=== PATIENT | female | born 1970 | race Caucasian/White ===

== ENCOUNTER 2017-09-29 22:10 | Emergency (ER) | payer OTHER ==
[~2017-09-29] VITALS: Ht 160 cm; Wt 88.0 kg
[~2017-09-29 22:10] MED LIST: AUGMENTIN 875875 MG PO; FLEXERIL; HYDROCODON-ACE1 EAC4; HYDROCODON-ACE1 EAC8 PO; MEDROL DOSPAK21 TAB PO; NORCO 10-325 T1 EACH PO; PEPCID40 MG PO; PREDNISONE 20 M20 M1 PO; SPIRONOLACTONE25 M1 PO; ZOFRAN4 MG PO; ZYRTEC 10 MG TA10 M1 PO
[2017-09-29 22:25] VITALS: BP 167/83
[2017-09-29] MEDS ORDERED: TRIAMCINOLONE A80 G2 TOP (22:28)
[2017-09-29] MEDS ORDERED: FLONASE 0.05%50 MCG NASAL (22:28)
[2017-09-29] MEDS ORDERED: KEFLEX500 M1 PO (22:28)
== END 2017-09-29 22:36 | disposition home or self-care (01) ==
LOC: M.ERS 22:10
DX: R21 Rash and other nonspecific skin eruption (principal); Z88.6 Allergy status to analgesic agent; Z90.710 Acquired absence of both cervix and uterus; Z90.49 Acquired absence of other specified parts of digestive tract

== ENCOUNTER 2018-11-08 04:35 | Emergency (ER) | payer OTHER ==
[~2018-11-08] VITALS: Ht 160 cm; Wt 82.6 kg
[~2018-11-08 04:35] MED LIST changes: +FLONASE 0.05%50 MCG NASAL; +KEFLEX500 M1 PO; +TRIAMCINOLONE A80 G2 TOP
[2018-11-08 05:14] LABS: ABSOLUTE BASOPHILS 0.1 thou/uL (0.0-0.2); ABSOLUTE EOSINOPHILS 0.4 thou/uL (0.0-0.7); ABSOLUTE MONOCYTES 0.5 thou/uL (0.0-1.2); BASOPHILS 0.9 %; EOSINOPHILS 7.2 %; HEMATOCRIT 41.8 % (37.0-47.0); HEMOGLOBIN 13.5 gm/dL (12.0-15.0); LYMPHOCYTES 33.3 %; MCH 27.5 pg (26.0-34.0); MCHC 32.2 g/dL (28.0-37.0); MCV 85.5 fL (80.0-100.0); MONOCYTES 7.9 %; MPV 8.3 fl. (7.2-11.1); NUCLEATED RBCS 0 /100WBC; PLATELET COUNT* 279 thou/uL (150-400); POLYS 50.7 %; RBC 4.89 mil/uL (4.20-5.00); RDW-CV 13.5 % (10.5-14.5)
[2018-11-08 05:21] LABS: CALCIUM 8.8 mg/dL (8.5-10.1); CREATININE 0.8 mg/dL (0.6-1.3); POTASSIUM 4.3 mmol/L (3.5-5.1)
[2018-11-08 05:26] LABS: ALBUMIN 3.4 g/dL (3.4-5.0); TOTAL BILIRUBIN 0.1 mg/dL (<0.1-1.0); TOTAL PROTEIN 7.4 g/dL (6.4-8.2)
[2018-11-08] MEDS ORDERED: AMOXICILLIN 50500 MG PO (06:14)
[2018-11-08 06:31] VITALS: BP 160/78
== END 2018-11-08 06:32 | disposition home or self-care (01) ==
LOC: M.ERS 04:35
PROVIDERS: Family Medicine
DX: J03.90 Acute tonsillitis, unspecified (principal); Z88.6 Allergy status to analgesic agent; Z98.890 Other specified postprocedural states; Z90.49 Acquired absence of other specified parts of digestive tract; Z90.710 Acquired absence of both cervix and uterus

== ENCOUNTER → 2018-12-06 | Outpatient (CLI) | payer OTHER ==
[~2018-12-06] MED LIST changes: +AMOXICILLIN 50500 MG PO
== END ==
LOC: M.MRI 06:25
DX: M47.26 Other spondylosis with radiculopathy, lumbar region (principal); M50.122 Cervical disc disorder at C5-C6 level with radiculopathy; M51.16 Intervertebral disc disorders with radiculopathy, lumbar region; M51.27 Other intervertebral disc displacement, lumbosacral region; M43.16 Spondylolisthesis, lumbar region; M47.817 Spondylosis without myelopathy or radiculopathy, lumbosacral region; M48.061 Spinal stenosis, lumbar region without neurogenic claudication; M48.07 Spinal stenosis, lumbosacral region; M47.22 Other spondylosis with radiculopathy, cervical region

== ENCOUNTER → 2019-05-23 | Outpatient (CLI) | payer OTHER | LOC: M.CT 08:27 | DX: R10.32 Left lower quadrant pain (principal); Z90.49 Acquired absence of other specified parts of digestive tract ==

== ENCOUNTER → 2019-06-11 | Outpatient (CLI) | payer OTHER ==
[2019-06-11 17:16] LABS: ABSOLUTE BASOPHILS 0.1 thou/uL (0.0-0.2); ABSOLUTE EOSINOPHILS 0.4 thou/uL (0.0-0.7); ABSOLUTE LYMPHOCYTES 1.8 thou/uL (0.8-5.3); ABSOLUTE MONOCYTES 0.6 thou/uL (0.0-1.2); ABSOLUTE NEUTROPHILS 5.4 thou/uL (1.6-8.1); BASOPHILS 0.9 %; EOSINOPHILS 4.5 %; HEMATOCRIT 40.9 % (37.0-47.0); HEMOGLOBIN 13.8 gm/dL (12.0-15.0); LYMPHOCYTES 22.1 %; MCH 28.3 pg (26.0-34.0); MCHC 33.7 g/dL (28.0-37.0); MCV 83.8 fL (80.0-100.0); MONOCYTES 7.1 %; MPV 8.1 fl. (7.2-11.1); NUCLEATED RBCS 0 /100WBC; PLATELET COUNT* 275 thou/uL (150-400); POLYS 65.4 %; RBC 4.88 mil/uL (4.20-5.00); RDW-CV 13.8 % (10.5-14.5); WBC 8.3 thou/uL (4.0-11.0)
[2019-06-11 17:32] LABS: ALBUMIN 3.9 g/dL (3.4-5.0); CALCIUM 8.8 mg/dL (8.5-10.1); CREATININE 0.8 mg/dL (0.6-1.3); POTASSIUM 4.2 mmol/L (3.5-5.1); TOTAL BILIRUBIN 0.3 mg/dL (<0.1-1.0); TOTAL PROTEIN 7.9 g/dL (6.4-8.2)
== END ==
LOC: M.LAB 17:04
PROVIDERS: Internal Medicine Gastroenterology
DX: R19.4 Change in bowel habit (principal)

== ENCOUNTER → 2019-06-17 | Day surgery (SDC) | payer OTHER ==
--- NOTE | ~2019-06-17 | PROC ---
[address] [place] [address] [facility]#: [id number] Admission: 06/17/19 Attend Phys: Chapo Hernandez DO Discharge: Date of : 68 Report #: [id number] THIS REPORT FOR: //name// For GI report, please see the Provation report in [employer] content. By: [id number] Records Staff TERRY /CHIN
== END | disposition home or self-care (01) ==
LOC: M.SUR 06:04
DX: R10.32 Left lower quadrant pain (principal); K59.00 Constipation, unspecified; K64.4 Residual hemorrhoidal skin tags; K21.9 Gastro-esophageal reflux disease without esophagitis; G43.909 Migraine, unspecified, not intractable, without status migrainosus; Z98.890 Other specified postprocedural states; Z79.899 Other long term (current) drug therapy; Z90.49 Acquired absence of other specified parts of digestive tract; Z90.710 Acquired absence of both cervix and uterus; Z88.8 Allergy status to other drugs, medicaments and biological substances

== ENCOUNTER → 2019-09-12 | Outpatient (CLI) | payer OTHER | LOC: M.LAB 15:59 | DX: Z11.59 Encounter for screening for other viral diseases (principal); Z20.828 Contact with and (suspected) exposure to other viral communicable diseases ==

== ENCOUNTER → 2019-09-25 | Outpatient (CLI) | payer OTHER | LOC: M.MRI 16:20 | DX: K86.0 Alcohol-induced chronic pancreatitis (principal); R10.9 Unspecified abdominal pain; F52.5 Vaginismus not due to a substance or known physiological condition; Z90.710 Acquired absence of both cervix and uterus ==

== ENCOUNTER → 2020-03-18 | Outpatient (CLI) | payer OTHER | LOC: M.LAB 09:24 | PROVIDERS: ATTEND Nurse Practitioner Family | DX: U07.1 COVID-19 (principal); Z86.19 Personal history of other infectious and parasitic diseases ==

== ENCOUNTER → 2020-08-09 | Outpatient (CLI) | payer OTHER ==
[2020-08-09 11:48] LABS: ABSOLUTE BASOPHILS 0.1 thou/uL (0.0-0.2); ABSOLUTE EOSINOPHILS 0.5 thou/uL (0.0-0.7); ABSOLUTE LYMPHOCYTES 1.3 thou/uL (0.8-5.3); ABSOLUTE MONOCYTES 0.3 thou/uL (0.0-1.2); ABSOLUTE NEUTROPHILS 3.3 thou/uL (1.6-8.1); EOSINOPHILS 9.4 %; HEMATOCRIT 44.1 % (37.0-47.0); HEMOGLOBIN 14.5 gm/dL (12.0-15.0); LYMPHOCYTES 23.6 %; MCH 27.9 pg (26.0-34.0); MCHC 32.8 g/dL (28.0-37.0); MONOCYTES 5.9 %; MPV 7.7 fl. (7.2-11.1); NUCLEATED RBCS 0 /100WBC; PLATELET COUNT* 292 thou/uL (150-400); POLYS 60.1 %; RBC 5.19 mil/uL (4.20-5.00); RDW-CV 13.8 % (10.5-14.5); WBC 5.5 thou/uL (4.0-11.0)
[2020-08-09 12:03] LABS: ALBUMIN 3.7 g/dL (3.4-5.0); ALKALINE PHOSPHATASE 96 U/L (46-116); ANION GAP 7 mmol/L (7-16); BUN 10 mg/dL (7-18); CALCIUM 8.7 mg/dL (8.5-10.1); CHLORIDE 105 mmol/L (98-107); CHOLESTEROL 175 mg/dL (<200); CO2 31 mmol/L (21-32); CREATININE 0.6 mg/dL (0.6-1.3); GLUCOSE 99 mg/dL (70-99); HDL CHOLESTEROL 80 mg/dL (>40); LDL CHOLESTEROL 84 mg/dL (<100); SGOT 19 U/L (15-37); SGPT 38 U/L (30-65); SODIUM 143 mmol/L (136-145); TC:HDL 2.2 Ratio (Not establshd); TOTAL BILIRUBIN 0.3 mg/dL (<0.1-1.0); TOTAL PROTEIN 7.8 g/dL (6.4-8.2); TRIGLYCERIDE 56 mg/dL (<150); VLDL 11 mg/dL (<40)
[2020-08-09 12:04] LABS: SERUM ASSESSMENT Clear
== END ==
LOC: M.LAB 11:06
PROVIDERS: ATTEND Nurse Practitioner Family
DX: Z12.31 Encounter for screening mammogram for malignant neoplasm of breast (principal); Z00.00 Encounter for general adult medical examination without abnormal findings; Z86.16 Personal history of COVID-19

== ENCOUNTER → 2020-08-19 | Outpatient (CLI) | payer OTHER | LOC: M.LAB 17:57 | PROVIDERS: ATTEND Nurse Practitioner Family | DX: U07.1 COVID-19 (principal) ==

== ENCOUNTER → 2021-03-23 | Outpatient (CLI) | payer OTHER ==
[2021-03-23 11:09] LABS: ABSOLUTE BASOPHILS 0.1 thou/uL (0.0-0.2); ABSOLUTE EOSINOPHILS 0.2 thou/uL (0.0-0.7); ABSOLUTE LYMPHOCYTES 1.3 thou/uL (0.8-5.3); ABSOLUTE MONOCYTES 0.3 thou/uL (0.0-1.2); ABSOLUTE NEUTROPHILS 2.8 thou/uL (1.6-8.1); ALBUMIN 3.6 g/dL (3.4-5.0); ALKALINE PHOSPHATASE 101 U/L (46-116); ANION GAP 6 mmol/L (7-16); BUN 13 mg/dL (7-18); CALCIUM 8.5 mg/dL (8.5-10.1); CHLORIDE 105 mmol/L (98-107); CHOLESTEROL 165 mg/dL (<200); CO2 31 mmol/L (21-32); CREATININE 0.7 mg/dL (0.6-1.3); EOSINOPHILS 5.1 %; GLUCOSE 101 mg/dL (70-99); HDL CHOLESTEROL 81 mg/dL (>40); HEMATOCRIT 40.7 % (37.0-47.0); HEMOGLOBIN 13.3 gm/dL (12.0-15.0); LDL CHOLESTEROL 75 mg/dL (<100); LYMPHOCYTES 27.5 %; MCH 27.3 pg (26.0-34.0); MCHC 32.8 g/dL (28.0-37.0); MCV 83.2 fL (80.0-100.0); MONOCYTES 6.9 %; MPV 7.8 fl. (7.2-11.1); NUCLEATED RBCS 0 /100WBC; PLATELET COUNT* 281 thou/uL (150-400); POLYS 59.5 %; POTASSIUM 4.3 mmol/L (3.5-5.1); RBC 4.88 mil/uL (4.20-5.00); RDW-CV 13.4 % (10.5-14.5); SGOT 23 U/L (15-37); SGPT 32 U/L (30-65); SODIUM 142 mmol/L (136-145); TOTAL BILIRUBIN 0.3 mg/dL (<0.1-1.0); TOTAL PROTEIN 7.6 g/dL (6.4-8.2); TRIGLYCERIDE 47 mg/dL (<150); VLDL 9 mg/dL (<40); WBC 4.8 thou/uL (4.0-11.0)
[2021-03-23 11:10] LABS: SERUM ASSESSMENT Clear
[2021-03-23 12:11] LABS: ESR (SEDRATE) 25 mm/hr (0-30)
[2021-03-24 18:06] LABS: ANA INTERPRETATION Negative (())
== END ==
LOC: M.LAB 10:27
PROVIDERS: ATTEND Nurse Practitioner Family
DX: Z13.220 Encounter for screening for lipoid disorders (principal); M25.511 Pain in right shoulder; M06.349 Rheumatoid nodule, unspecified hand; I83.813 Varicose veins of bilateral lower extremities with pain

== ENCOUNTER → 2021-03-31 | Outpatient (CLI) | payer OTHER | LOC: M.MRI 11:15 | PROVIDERS: ATTEND Nurse Practitioner Family | DX: M47.817 Spondylosis without myelopathy or radiculopathy, lumbosacral region (principal); M43.16 Spondylolisthesis, lumbar region; M48.062 Spinal stenosis, lumbar region with neurogenic claudication; M51.27 Other intervertebral disc displacement, lumbosacral region; M79.604 Pain in right leg; M79.605 Pain in left leg ==